=== PATIENT | female | born 1965 | race Caucasian/White ===

== ENCOUNTER 2018-06-16 20:43 | Emergency (ER) | payer OTHER ==
[~2018-06-16 20:43] MED LIST: Iopamidol 370 76% 100 ML VIAL ONE
[2018-06-16] MEDS ORDERED: Ondansetron HCl/PF 4 MG/2 ML Vial ONE (21:29)
[2018-06-16] MEDS ORDERED: Sodium Chloride 0.9% 1,000 ML ONE (21:29)
[2018-06-16 21:41] LABS: #Basophils 0.1 thou/uL (0.0-0.2); #Eosinphils 0.2 thou/uL (0.0-0.7); #Lymphocytes 1.1 thou/uL (1.20-3.40); #Monocytes 0.3 thou/uL (0.11-0.59); #Neutrophils 4.4 thou/uL (1.40-6.50); %Basophils 1.5 % (0.0-1.0); %Eosinophils 2.6 % (0.0-10.0); %Monocytes 5.3 % (0.0-10.0); %Neutrophils 72.6 % (42.0-75.0); Mean Corpuscular HGB CONC 30.2 g/dL (32.0-36.0); Mean Corpuscular Hemoglobin 25.8 pg (27.0-31.0); Mean Corpuscular Volume 85.6 fL (78.0-98.0); Mean Platelet Volume 6.4 fL (7.4-10.4); Platelet Count 381 thou/uL (130-400); RBC Distribution Width 15.2 % (11.5-14.5); Red Blood Cell (RBC) Count 4.25 mill/uL (4.20-5.40)
--- NOTE | 2018-06-16 21:44 | CT ---
CT BRAIN NONCONTRAST: 06/16/18 HISTORY: 52-year-old female with headache, nausea, and emesis. FINDINGS: There is no midline shift or any other mass effect. There is no evidence of acute intracranial hemor rhage, large cortical infarct, obstructive hydrocephalus, or extraaxial fluid collection. The calvar ium is intact. IMPRESSION: No acute intracranial findings. henri [] POS: TAB
[2018-06-16 21:48] LABS: PTT 29.7 SEC (22.9-36.1); Prothrombin Time 13.7 SEC (12.0-14.7)
[2018-06-16 21:55] LABS: ALT (SGPT) 18 U/L (8-55); AST (SGOT) 23 U/L (5-34); Albumin 4.2 g/dL (3.5-5.0); Alkaline Phosphatase 87 U/L (40-150); Anion Gap 13 mmol/L (10-20); BUN (Urea Nitrogen) 10 mg/dL (9.8-20.1); Bilirubin, Total 0.9 mg/dL (0.2-1.2); CRP (Inflammatory) Less than 0.50 mg/dL (= or < 0.5); Calc. Creatinine Clearance 0 mL/min (70-130); Calcium 10.1 mg/dL (7.8-10.44); Carbon Dioxide 28 mmol/L (22-29); Chloride 104 mmol/L (98-107); Estimated GFR-MDRD 69; Globulin 3.4 g/dL (2.4-3.5); Glucose 96 mg/dL (70-105); Potassium 3.6 mmol/L (3.5-5.1); Protein, Total 7.6 g/dL (6.0-8.3); Sodium 141 mmol/L (136-145)
--- NOTE | 2018-06-17 11:15 | CT ---
CT ANGIOGRAM OF THE HEAD WITH CONTRAST CT ANGIOGRAM OF THE NECK WITH CONTRAST 06/16/18 at 10:10 p.m. HISTORY: 52-year-old female with headaches, nausea, and emesis. COMPARISON: None. TECHNIQUE: IV contrast bolus injection followed by arterial bolus chasing technique scan from slightly inferior to the suzanna through the vertex of the head. Coronal and sagittal 3D MIP reconstructions. FINDINGS: The coverstitch elastic attacher view demonstrates a large mass occupying the right medial lower aspect of the thoracic cavi ty. The CT images do not include this mass, but do demonstrate a fluid filled, dilated esophagus. The lower portion of this esophagus expands, and has mural thickening and mural enhancement. Perhaps thi s represents the upper portion of a right sided large hiatal hernia. The lung apices are clear of con solidations. Ectasia but no aneurysm or dissection, of the ascending aorta and aortic arch. The brach iocephalic, right subclavian, left subclavian, bilateral common carotid, bilateral internal carotid, bilateral anterior cerebral, bilateral middle cerebral, left vertebral, basilar, and bilateral picker and packer ior cerebral, arteries, are normal in caliber. Bilateral superior cerebellar arteries are visualized, but are too small to evaluate in detail. The right vertebral artery is very small in caliber, but pa tent. The intracranial portion of the right vertebral artery is difficult to visualize and it may ter minate in PICA. IMPRESSION: 1. Diminutive right vertebral artery, developmental. 2. No acquired high grade stenosis of major arteries of the head and neck. 3. Fluid filled, dilated esophagus. 4. Large right lower chest mass is visualized only on the coverstitch elastic attacher image. It may represent a large right sided hiatal hernia. Alternatively, this could represent severe pouch dilatation because what a ppears to be a lap band is visualized slightly to the right of midline at the thoracoabdominal juncti on. This represents a dramatic interval change compared to 11/05/12 CT of the abdomen and pelvis. Cons ider follow up CT of the chest and abdomen for further evaluation of this. POS: TAB
== END 2018-06-17 00:43 | disposition short-term general hospital (02) ==
LOC: NAV ERS 20:43
DX: R51 Headache (principal); R22.2 Localized swelling, mass and lump, trunk; K21.9 Gastro-esophageal reflux disease without esophagitis
CPT/HCPCS: 70450; 70496; 70498; 80053; 85025; 85610; 85730; 86140; 94760; 96361; 96374; J2405; J7050